=== PATIENT | female | born 1980 | race American Indian/Alaskan Native ===

== ENCOUNTER 2018-04-22 00:47 | Emergency (ER) | payer SELFPAY ==
[2018-04-22] MEDS ORDERED: BOOSTRIX IM ONE (04:28)
[2018-04-22] MEDS ORDERED: ULTRAM PO ONE (04:28)
--- NOTE | 2018-04-22 05:06 | Emergency Department Report ---
ED ENT HPI - General Chief complaint: Dental/Oral Stated complaint: TOOTH INFECTION/SWOLLEN FACE Time Seen by Provider: 04/22/18 04:28 Source: patient Mode of arrival: Ambulatory Limitations: No Limitations - History of Present Illness Initial comments: This is a 37-year-old -[place] female presents with dental pain with facial swelling 1 week patient denies fever chills no nausea vomiting no ear or throat pain or frequency dental caries with chronic MD complaint: tooth pain, ear pain -: Sudden Location: throat Severity: moderate - Related Data Previous Rx's Medication Instructions Recorded Last Taken Type Amoxicillin/Potassium Clav 1 each PO BID #20 tablet 04/22/18 Unknown Rx [Augmentin 875-125 Tablet] Chlorhexidine Mouthwash [Peridex] 16 ml MM BID #1 bottle 04/22/18 Unknown Rx traMADol [Ultram] 50 mg PO Q6HR PRN 3 Days #12 tablet 04/22/18 Unknown Rx Allergies Allergy/AdvReac Type Severity Reaction Status Date / Time No Known Allergies Allergy Unverified 04/22/18 00:55 ED Dental HPI - General Chief complaint: Dental/Oral Stated complaint: TOOTH INFECTION/SWOLLEN FACE Time Seen by Provider: 04/22/18 04:28 Source: patient Mode of arrival: Ambulatory Limitations: No Limitations - History of Present Illness Initial comments: Patient presents with chronic dental care with multiple done. There is no fevers no chills no nausea vomiting no back pain , Dentist appointment made for Mr. Valladares was slow process MD complaint: ear pain -: Gradual, week(s), This morning - Related Data Previous Rx's Medication Instructions Recorded Last Taken Type Amoxicillin/Potassium Clav 1 each PO BID #20 tablet 04/22/18 Unknown Rx [Augmentin 875-125 Tablet] Chlorhexidine Mouthwash [Peridex] 16 ml MM BID #1 bottle 04/22/18 Unknown Rx traMADol [Ultram] 50 mg PO Q6HR PRN 3 Days #12 tablet 04/22/18 Unknown Rx Allergies Allergy/AdvReac Type Severity Reaction Status Date / Time No Known Allergies Allergy Unverified 04/22/18 00:55 ED Review of Systems ROS: Stated complaint: TOOTH INFECTION/SWOLLEN FACE Other details as noted in HPI Constitutional: no symptoms reported Eyes: denies: eye pain, eye discharge, vision change ENT: dental pain Respiratory: denies: cough, shortness of breath, wheezing Cardiovascular: denies: chest pain, palpitations Endocrine: no symptoms reported Gastrointestinal: denies: abdominal pain, nausea, diarrhea ED Past Medical Hx - Past Medical History Previous Medical History?: No - Surgical History Past Surgical History?: No - Social History Smoking Status: Never Smoker Substance Use Type: None - Medications Home Medications: Home Medications Medication Instructions Recorded Confirmed Last Taken Type Amoxicillin/Potassium Clav 1 each PO BID #20 tablet 04/22/18 Unknown Rx [Augmentin 875-125 Tablet] Chlorhexidine Mouthwash [Peridex] 16 ml MM BID #1 bottle 04/22/18 Unknown Rx traMADol [Ultram] 50 mg PO Q6HR PRN 3 Days #12 tablet 04/22/18 Unknown Rx ED Physical Exam - General Limitations: No Limitations General appearance: alert, in no apparent distress - Head Head exam: Present: atraumatic, normocephalic, normal inspection - Eye Eye exam: Present: normal appearance, PERRL, EOMI - Expanded ENT Exam Expanded Ear exam: Present: normal external inspection Teeth exam: Present: normal inspection, dental caries, dental tenderness # (25) Throat exam: Positive: normal inspection. Negative: tonsillar erythema, tonsillomegaly, tonsillar exudate, R peritonsillar mass, L peritonsillar mass - Neck Neck exam: Present: normal inspection - Respiratory Respiratory exam: Present: normal lung sounds bilaterally. Absent: respiratory distress, rhonchi, chest wall tenderness - Cardiovascular Cardiovascular Exam: Present: regular rate - GI/Abdominal GI/Abdominal exam: Present: soft, normal bowel sounds - Rectal Rectal exam: Present: deferred - External exam: Present: normal external exam - Extremities Exam Extremities exam: Present: normal inspection - Back Exam Back exam: Present: normal inspection - Neurological Exam Neurological exam: Present: alert - Psychiatric Psychiatric exam: Present: normal affect, normal mood - Skin Skin exam: Present: warm, dry, intact, normal color. Absent: rash ED Course Vital Signs 04/22/18 04/22/18 04/22/18 00:52 04:46 05:26 Temperature 99.8 F H Pulse Rate 94 H 90 Respiratory 16 18 18 Rate Blood Pressure 155/89 Blood Pressure 150/90 [Right] O2 Sat by Pulse 100 99 Oximetry ED Medical Decision Making - EKG Data When compared to previous EKG there are: no significant change - Medical Decision Making Patient does not want x-rays CTs or I&D for possible abscess first to dentist plan NSAID dentist today DC to home in stable condtion pt given strict instructions to return to ed if symptoms worsen or unable to tolerate po intake. Critical care attestation.: If time is entered above; I have spent that time in minutes in the direct care of this critically ill patient, excluding procedure time. ED Disposition Clinical Impression: Dental abscess, Infected dental carries Disposition: DC-01 TO HOME OR SELFCARE Is pt being admited?: No Does the pt Need Aspirin: No Condition: Good Instructions: Dental Abscess (ED), Dental Caries (ED) Prescriptions: Amoxicillin/Potassium Clav [Augmentin 875-125 Tablet] 1 each PO BID #20 tablet Chlorhexidine Mouthwash [Peridex] 16 ml MM BID #1 bottle traMADol [Ultram] 50 mg PO Q6HR PRN 3 Days #12 tablet PRN Reason: Pain Referrals: PRIMARY CARE, [Primary Care Provider] - 3-5 Days Forms: Work/School Release Form(ED) Time of Disposition: 05:37
[2018-04-22 05:26] VITALS: BP 150/90
== END 2018-04-22 06:20 | disposition home or self-care (01) ==
LOC: ED 00:47
DX: K04.7 Periapical abscess without sinus (principal); K02.9 Dental caries, unspecified
CPT/HCPCS: 99282